=== PATIENT | female | born 1955 | race Caucasian/White ===

== ENCOUNTER 2016-04-01 21:26 | Emergency (ER) | payer OTHER ==
[2016-04-01] MEDS ORDERED: SILVER NITRATE APPLICATOR 1 EACH TOPICAL ONE ×4 (21:40→21:47)
--- NOTE | 2016-04-01 21:52 | PDOC ---
Epistaxis / Nasal FB - General Chief Complaint: Nasal/Mouth Problem /Injury Stated Complaint: BLOODY NOSE FOR 1 HOUR Date Seen by Provider: 04/01/16 Time Seen by Provider: 21:47 Source: POSITIVE: Patient, Spouse Exam Limitations: POSITIVE: No limitations Nurse's Notes Reviewed & Considered: Yes - History of Present Illness Initial Comments: Impression presents with epistaxis. Patient is a 1 hour history of bleeding from the left nare. She's had a another recent nosebleed after she injured the mucosa on the medial septum a few days ago. She told her oncologist that she had been having blood clots in her nose but nothing has been done. Ultimately undergoing treatment for stage IV ovarian cancer. She denies any fever chills sweats, nausea vomiting diarrhea, no chest pain shortness of breath, no cough, no headaches. Timing: REPORTS: Abrupt Severity: Moderate Lasting (minutes): 60 Context: REPORTS: None Modifying Factors: improves with: Nothing Similar Symptoms Previously: Yes Recent Care Received: REPORTS: Recently Seen Any Prior Injuries Related to Current Complaint?: No - Patient Allergies Allergies/Adverse Reactions: Allergies Allergy/AdvReac Type Severity Reaction Status Date / Time codeine Allergy Intermediate rash Verified 04/01/16 21:33 - Patient Home Medications Home Medications: Home Medications Multivitamin [Daily Vitamin] 1 tab PO DAILY tab 08/21/14 Fexofenadine HCl [Destiny Allergy] 180 mg PO DAILY tab 06/16/15 Past Medical History - heen HEENT History: Dentures/Partials Cardiovascular History: Hypertension Respiratory History: Denies History Additional Gastrointestinal History: 03/11/14 HAD COLECTOMY Genitourinary History: Denies History Endocrine History: Denies History Musculoskeletal History: Denies History Prosthesis or Implant: No Neurological History: Migraines Blood Disorders: Denies History Psychiatric History: Anixety Disorders History of Sexually Transmitted Diseases: No Female Reproductive History: Denies History Obstetrical History: Denies History In Past Year Been Physically Harmed or Verbally Threatened: No History of MDRO: No History of Other Communicable Diseases: No Tobacco Use: Never Smoker Alcohol Use: None Substance Use Type: None Previous Surgical History: Yes Type / Date of Surgery: APPY/ HYST WITH BILAT OOPHORECTOMY 03/11/14/ C SECTION / COLONOSCOPY/ RIGHT HEMICOLECTOMY WITH TUMOR DEBULKING FROM SIGMOID COLON/ TONSILLECTOMY Anesthesia Reactions: No Malignant Hyperthermia: No Significant Family History: No pertinent family hx ROS - Limitations ROS Limitations: No Limitations Constitution: REPORTS: Denies Symptoms Cardiovascular: REPORTS: Denies Cardiac Symptoms Respiratory: REPORTS: Denies Resp Symptoms Neurological: REPORTS: Denies Neuro Symptoms Gastrointestinal: REPORTS: Denies GI Symptoms Endocrine: REPORTS: Denies Symptoms Musculoskeletal: REPORTS: Denies MS Symptoms Genitourinary: REPORTS: Denies Symptoms Eyes: REPORTS: Denies Symptoms ENT: REPORTS: Nose Bleed Skin: REPORTS: Denies Skin Symptoms Lympathic: REPORTS: Denies Lympathic Symptoms Immunologic: POSITIVE: Denies Symptoms Psychiatric: POSITIVE: Denies Psych Symptoms Nose Complaint Exam - General Appearance General Appearance: POSITIVE: Alert, Cooperative, No Acute Distress, No Evidence of Trauma, Anxious - HEENT Head / Face: POSITIVE: Atraumatic, Normal Inspection Eyes: POSITIVE: Inspection Normal, PERRL, EOM's Intact, Eyelids Uninjured Ears: POSITIVE: Ears Normal Inspection Nose: POSITIVE: Clotted Nasal Blood, Epistaxis, Active Bleeding Oropharynx: POSITIVE: External Inspection Nml, Pharynx Inspect. Nml, Airway Intact, Voice Normal, Moist Mucous Membranes, No Oral Injury, Lips Normal, Gums Normal Dental: POSITIVE: No Dental Injury - Neurological / Psychological Neurological: POSITIVE: Affect Apporpriate, Oriented X3 - Neck Neck: POSITIVE: Normal Inspection - Respiratory Respiratory: POSITIVE: No Respiratory Distress, Breath Sounds Normal, Chest Non- Tender - Cardiovascular Cardiovascular: POSITIVE: Regular Rate and Rhythm, Heart Sounds Normal - Abdomen Abdomen: Soft: (All Quadrants), Normal Bowel Sounds: (All Quadrants), Denies Tenderness: (All Quadrants) - Skin Skin: POSITIVE: Normal Color, No Skin Rash Nose Complaint Progress - Results Reviewed by me Lab Results Reviewed: Yes Lab Results:: Laboratory Results 04/01/16 Range/Units 22:03 WBC 8.04 (4.8-10.8) 10^3/uL RBC 3.78 L (4.20-5.40) 10^6/uL Hgb 12.9 (12.0-16.0) g/dL Hct 36.6 L (37.0-47.0) % MCV 96.8 (81-99) FL MCH 34.1 H (27-31) PG MCHC 35.2 (33-37) g/dL RDW Std Deviation 48.2 (39-50) fL RDW Coeff of Daniel 14.2 (11.5-14.5) % Plt Count 213 (140-350) 10*3/uL MPV 7.9 (7.4-12.2) FL Immature Gran % (Auto) 0.1 (0-5) % Neut % (Auto) 46.5 L (50-80) % Lymph % (Auto) 39.4 (10-50) % [place] % (Auto) 6.8 (5-15) % Eos % (Auto) 6.5 (0-8) % Baso % (Auto) 0.7 (0-1) % Immature Gran # (Auto) 0.01 10*3/UL Neut # (Auto) 3.73 10*3/UL Lymph # (Auto) 3.17 10*3/uL [place] # (Auto) 0.55 (0.3-0.8) 10*3/UL Eos # (Auto) 0.52 10*3/UL Baso # (Auto) 0.06 10*3/UL WBC Morphology Comment Normal morphology (NORM) Plt Morphology Comment Normal morphology (NORM) RBC Morph Comment Normal morphology (NORM) PT 10.7 (9.7-11.4) secs INR 1.04 (0.00-5.90) N/A - Patient's Progress Pain Medication Addressed: POSITIVE: Not Applicable Re-Examine Time:: 22:17 Status: POSITIVE: Improved MDM / ED Course: Patient was evaluated, blood drawn and sent to lab for studies. After obtaining informed verbal consent. Bleeding on the medial septum left naris was identified as the source of bleed. Using silver nitrate this was cauterized. Patient was observed for approximately 30 minutes with no resumption of nosebleed. She is being discharged home with instructions to follow up with her primary care physician, nasal saline, no foreign objects in her nose, and no blowing her nose. - Consult Counseled: POSITIVE: Patient, Family, RE: Lab Results, RE: DX, RE: Need for F/U Patient Care Time - Estimated PCT Patient Care Time (In Minutes): 30 Vital Signs - VS Reviewed Vital Signs Reviewed: Yes Discharge Clinical Impression: Epistaxis Discharge Disposition: Discharged to Home Condition: Good Patient Instructions Given at Discharge: Nosebleed (ED)
[2016-04-01 22:05] LABS: BASOPHILS # (AUTO) 0.06 10*3/UL; BASOPHILS % (AUTO) 0.7 % (0-1); EOSINOPHILS % (AUTO) 6.5 % (0-8); HEMATOCRIT 36.6 % (37.0-47.0); HEMOGLOBIN 12.9 g/dL (12.0-16.0); IMM GRAN % (AUTO) 0.1 % (0-5); IMM GRAN# (AUTO) 0.01 10*3/UL; LYMPHOCYTES # (AUTO) 3.17 10*3/uL; LYMPHOCYTES % (AUTO) 39.4 % (10-50); MEAN CORPUSCULAR HEMOGLOBIN 34.1 PG (27-31); MEAN CORPUSCULAR HGB CONC 35.2 g/dL (33-37); MEAN PLATELET VOLUME 7.9 FL (7.4-12.2); MONOCYTES # (AUTO) 0.55 10*3/UL (0.3-0.8); MONOCYTES % (AUTO) 6.8 % (5-15); NEUTROPHILS # (AUTO) 3.73 10*3/UL; NEUTROPHILS % (AUTO) 46.5 % (50-80); RDW COEFFICIENT OF VARIATION 14.2 % (11.5-14.5); RED BLOOD COUNT 3.78 10^6/uL (4.20-5.40); WHITE BLOOD COUNT 8.04 10^3/uL (4.8-10.8)
[2016-04-01 22:06] LABS: PLATELET MORPHOLOGY COMMENT NORMAL MORPHOLOGY (NORM)
[2016-04-01 22:15] LABS: PROTHROMBIN TIME 10.7 secs (9.7-11.4)
[2016-04-02 00:14] VITALS: RESP 18; TEMP 96.8
== END 2016-04-01 22:25 | disposition home or self-care (01) ==
LOC: ER 21:26
DX: R04.0 Epistaxis (principal)
CPT/HCPCS: 30901; 36415; 85025; 85610; 99282

== ENCOUNTER → 2016-06-13 | Outpatient (CLI) | payer OTHER ==
--- NOTE | 2016-06-13 15:06 | DI ---
RIGHT SHOULDER, 06/13/2016 1:09 PM: Clinical History: Acute right shoulder pain. Previous Exam: None at this facility. 4 views are submitted. There is no acute soft tissue, osseous, or joint abnormality. There is osteopo rosis. The visualized portions of the right lung and apex are normal. The patient has an indwelling c atheter. Reading: Normal right shoulder exam. Osteoporosis.
== END ==
LOC: ORTHO 13:50
PROVIDERS: ATTEND Physician Assistant
DX: M25.511 Pain in right shoulder (principal); M75.41 Impingement syndrome of right shoulder
CPT/HCPCS: 73030

== ENCOUNTER 2016-08-10 09:17 | Emergency (ER) | payer OTHER ==
[2016-08-10] MEDS ORDERED: COCAINE HCL 4% - 4 ML TOPICAL SOLUTION TOPICAL ONE (09:53)
[2016-08-10 10:05] LABS: BASOPHILS # (AUTO) 0.03 10*3/UL; BASOPHILS % (AUTO) 0.5 % (0-1); EOSINOPHILS # (AUTO) 0.29 10*3/UL; EOSINOPHILS % (AUTO) 4.9 % (0-8); HEMATOCRIT 39.1 % (37.0-47.0); LYMPHOCYTES # (AUTO) 1.54 10*3/uL; MEAN CORPUSCULAR HEMOGLOBIN 33.8 PG (27-31); MEAN CORPUSCULAR HGB CONC 33.2 g/dL (33-37); MEAN CORPUSCULAR VOLUME 101.6 FL (81-99); MEAN PLATELET VOLUME 7.6 FL (7.4-12.2); MONOCYTES # (AUTO) 0.41 10*3/UL (0.3-0.8); NEUTROPHILS # (AUTO) 3.61 10*3/UL; NEUTROPHILS % (AUTO) 61.3 % (50-80); RED BLOOD COUNT 3.85 10^6/uL (4.20-5.40)
[2016-08-10 10:07] VITALS: RESP 18; TEMP 97.8
[2016-08-10 10:07] LABS: PLATELET MORPHOLOGY COMMENT NORMAL MORPHOLOGY (NORM); RBC MORPHOLOGY COMMENT NORMAL MORPHOLOGY (NORM); WBC MORPHOLOGY COMMENT NORMAL MORPHOLOGY (NORM)
[2016-08-10 10:15] LABS: BLOOD UREA NITROGEN 10 mg/dL (7-22); CALCIUM 9.2 mg/dL (8.7-10.7); EST GLOMERULAR FILTRATION > 60 (>60 ml/min/1.73m(2))
[2016-08-10] MEDS ORDERED: SILVER NITRATE APPLICATOR 1 EACH TOPICAL ONE ×2 (10:30→10:47)
[2016-08-10] MEDS ORDERED: TRANEXAMIC ACID 1,000 MG / 10 ML VIAL IRRIG ONE (11:00)
--- NOTE | 2016-08-11 03:40 | PDOC ---
Epistaxis / Nasal FB - General Chief Complaint: Nasal/Mouth Problem /Injury Stated Complaint: nose bleed Date Seen by Provider: 08/11/16 Time Seen by Provider: 09:45 Source: POSITIVE: Patient Exam Limitations: POSITIVE: No limitations Nurse's Notes Reviewed & Considered: Yes - History of Present Illness Initial Comments: The patient is a 61-year-old female who presents to the emergency department with nosebleed. She states that she has had problems with intermittent nosebleeds which have been worsened since starting on chemotherapy recently. She states for the past week or so she has had intermittent minor nosebleeds. Last night she had a fairly significant nosebleed that took a period of time to stop. Again this morning she coughed and had subsequent bleeding primarily from the left side of her nose which was not stopping so she decided to come here to the emergency room. She is not currently taking any blood thinner medications. She states at one point her platelets were low secondary to the chemotherapy she was receiving however recently her blood counts have been okay. She last had her blood work done about a week ago. She denies any other associated symptoms. - Patient Allergies Allergies/Adverse Reactions: Allergies Allergy/AdvReac Type Severity Reaction Status Date / Time codeine Allergy Intermediate rash Verified 08/10/16 09:33 - Patient Home Medications Home Medications: Home Medications Multivitamin [Daily Vitamin] 1 tab PO DAILY tab 08/21/14 Amlodipine Besylate 5 mg PO DAILY 04/01/16 Meloxicam 1 tab PO QHS #30 tab 07/04/16 Cephalexin [Keflex] 500 mg PO Q8H #15 cap 08/10/16 Lisinopril 40 mg PO DAILY 08/10/16 Past Medical History - heen HEENT History: Dentures/Partials Cardiovascular History: Hypertension Respiratory History: Denies History Additional Gastrointestinal History: 03/11/14 HAD COLECTOMY Genitourinary History: Denies History Endocrine History: Denies History Musculoskeletal History: Joint Pain Prosthesis or Implant: No Neurological History: Migraines Blood Disorders: Denies History Psychiatric History: Anxiety Disorders History of Sexually Transmitted Diseases: No Female Reproductive History: Hysterectomy Obstetrical History: Delivery In Past Year Been Physically Harmed or Verbally Threatened: No History of MDRO: No History of Other Communicable Diseases: No Tobacco Use: Current Every Day Smoker Alcohol Use: None Substance Use Type: None Previous Surgical History: Yes Type / Date of Surgery: APPY/ HYST WITH BILAT OOPHORECTOMY 03/11/14/ C SECTION / COLONOSCOPY/ RIGHT HEMICOLECTOMY WITH TUMOR DEBULKING FROM SIGMOID COLON/ TONSILLECTOMY Anesthesia Reactions: No Malignant Hyperthermia: No Significant Family History: No pertinent family hx Past Medical History Reviewed: Reviewed - No Changes ROS - Limitations ROS Limitations: No Limitations Constitution: DENIES: Chills, Fever Cardiovascular: REPORTS: Denies Cardiac Symptoms Respiratory: REPORTS: Denies Resp Symptoms Neurological: REPORTS: Denies Neuro Symptoms Gastrointestinal: REPORTS: Denies GI Symptoms Nose Complaint Exam - General Appearance General Appearance: POSITIVE: Alert, Cooperative, No Acute Distress - HEENT Head / Face: POSITIVE: Atraumatic, No Facial Swelling Eyes: POSITIVE: Inspection Normal Ears: POSITIVE: Ears Normal Inspection Nose: POSITIVE: Other (she does have some clot formation in the left nares with some mild active oozing of blood, dried blood in the right nares) Oropharynx: POSITIVE: Other (some evidence of blood draining down the back of her throat as well) - Neurological / Psychological Neurological: 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 After topical cocaine was applied the clot was cleared and the nasal cavity was observed using a nasal speculum and headlamp. She has continued fairly active bleeding from the septum on the left side. This did not appear to be amendable to cautery with silver nitrite. Decision was made to try a rapid Rhino. A 5.5 cm rapid Rhino was attempted to be placed in the left nares however her nasal passageway was too small to accommodate this and would not pass without significant pain. Subsequently a nasal tampon was placed. Initially she continued to have some fairly significant active oozing. I was getting ready to replace this with a TXA soaked nasal tampon when the bleeding seemed to finally stop. The nasal tampon that was in place was infused with the TXA and she was monitored. The bleeding appeared to have resolved. Her blood work revealed normal platelets, normal hemoglobin and normal coags. She was started on Keflex 3 times a day while the packing is in place. She was advised to leave the packing in place and return here to the emergency room over the weekend in 3 days for packing removal. She has an appointment with an ENT physician in a couple of weeks which she was advised to keep. She will return if any worsening bleeding, increased pain, fever, any worsening or change in symptoms. Nose Complaint Progress - Results Reviewed by me Lab Results:: Laboratory Results 08/10/16 08/10/16 Range/Units 09:53 10:00 WBC 5.89 (4.8-10.8) 10^3/uL RBC 3.85 L (4.20-5.40) 10^6/uL Hgb 13.0 (12.0-16.0) g/dL Hct 39.1 (37.0-47.0) % MCV 101.6 H (81-99) FL MCH 33.8 H (27-31) PG MCHC 33.2 (33-37) g/dL RDW Std Deviation 54.2 H (39-50) fL RDW Coeff of Daniel 14.8 H (11.5-14.5) % Plt Count 221 (140-350) 10*3/uL MPV 7.6 (7.4-12.2) FL Immature Gran % (Auto) 0.2 (0-5) % Neut % (Auto) 61.3 (50-80) % Lymph % (Auto) 26.1 (10-50) % [place] % (Auto) 7.0 (5-15) % Eos % (Auto) 4.9 (0-8) % Baso % (Auto) 0.5 (0-1) % Immature Gran # (Auto) 0.01 10*3/UL Neut # (Auto) 3.61 10*3/UL Lymph # (Auto) 1.54 10*3/uL [place] # (Auto) 0.41 (0.3-0.8) 10*3/UL Eos # (Auto) 0.29 10*3/UL Baso # (Auto) 0.03 10*3/UL WBC Morphology Comment Normal morphology (NORM) Plt Morphology Comment Normal morphology (NORM) RBC Morph Comment Normal morphology (NORM) PT 10.1 (9.7-11.4) secs INR 0.98 (0.00-5.90) N/A Sodium 136 (135-145) meq/L Potassium 4.2 (3.8-5.2) meq/L Chloride 101 (98-112) meq/L Carbon Dioxide 24 (23-33) meq/L Anion Gap 11 (5-20) BUN 10 (7-22) mg/dL Creatinine 0.8 (0.50-1.20) mg/dL Estimated GFR > 60 (>60 ml/min/1.73m(2)) BUN/Creatinine Ratio 12.50 (6-20) Glucose 102 (78-110) mg/dL Calculated Osmolality 280.0 (267-292) mOsm/kg Calcium 9.2 (8.7-10.7) mg/dL - Patient's Progress MDM / ED Course: Her bleeding was eventually controlled as per procedure note. Her blood work revealed normal platelets, normal hemoglobin and normal coags. She was started on Keflex 3 times a day while the packing is in place. She was advised to leave the packing in place and return here to the emergency room over the weekend in 3 days for packing removal. She has an appointment with an ENT physician in a couple of weeks which she was advised to keep. She will return if any worsening bleeding, increased pain, fever, any worsening or change in symptoms. Patient Care Time - Estimated PCT Patient Care Time (In Minutes): 55 Vital Signs - VS Reviewed Vital Signs Reviewed: Yes Discharge Clinical Impression: Epistaxis Discharge Disposition: Discharged to Home Condition: Stable Prescriptions / Orders: Cephalexin [Keflex] 500 mg PO Q8H #15 cap Patient Instructions Given at Discharge: Nosebleed (ED) Additional Instructions: Keep the packing in place. You have been started on Keflex 500 mg 3 times a day for 5 days while the packing is in place. Avoid blowing her nose. Return to the emergency room if increased bleeding, increased pain, fever, any worsening or change in symptoms. He will need to return to the emergency department this weekend on Sunday for packing removal. Recommend follow-up with ENT as previously scheduled. Follow Up With: NONE,NONE [Primary Care Provider] -
== END 2016-08-10 12:37 | disposition home or self-care (01) ==
LOC: ER 09:17
DX: R04.0 Epistaxis (principal)
CPT/HCPCS: 30901; 80048; 85025; 85610; 99282

== ENCOUNTER 2016-08-13 13:35 | Emergency (ER) | payer OTHER ==
[2016-08-13 14:08] VITALS: RESP 16; TEMP 97.9
--- NOTE | 2016-08-13 19:26 | PDOC ---
Epistaxis / Nasal FB - General Chief Complaint: Nasal/Mouth Problem /Injury Stated Complaint: Nose Bleed Date Seen by Provider: 08/13/16 Time Seen by Provider: 14:10 Source: POSITIVE: Patient, Old records Exam Limitations: POSITIVE: No limitations Nurse's Notes Reviewed & Considered: Yes - History of Present Illness Initial Comments: The patient is a 61-year-old female. 3 days ago she was seen in the emergency room for left sided epistaxes. Emergency room physician on duty at that time placed a large Merocel packing in the left side of the nose. She states she was advised to return to the emergency room today for packing removal and reevaluation. She has been placed on an antibiotic prophylactically when the packing was placed. Patient states she takes aspirin as necessary for headache. History of hypertension for which she takes lisinopril. Patient also has a history of ovarian cancer. Is on no anticoagulants Timing: REPORTS: Other (patient denies any recurrence of bleeding since packing was placed) Severity: Moderate Quality: DENIES: Aching, Burning, Cramping, Dullness, Fullness, "Pain", Sharpness, Stabbing, Throbbing, Tenderness, Itching, Pressure, Other Context: DENIES: None, Sitting, Standing, Activity, Emotional stress, Coughing, Out of Country Travel, Bad Food, Recent Trauma, Recent Surgery, Sleep, Rest, Lifting, Turning, Bending, Fall, Near Fall Modifying Factors: worse with: Nothing, Analgesics, Antacids, Breathing, Coughing, Defecating, Vomiting, Eating, Exercise, Lying down, Urinating, Palpation, Movement, Rest, Upright Position, Walking, Remaining Still, Other Associated Symptoms: Other (no associated symptoms; no dizziness or lightheadedness; no recurrence of epistaxis) Similar Symptoms Previously: Yes Recent Care Received: REPORTS: Recently Seen, Treated by MD (see above) Any Prior Injuries Related to Current Complaint?: No - Patient Allergies Allergies/Adverse Reactions: Allergies Allergy/AdvReac Type Severity Reaction Status Date / Time codeine Allergy Intermediate rash Verified 08/13/16 14:15 - Patient Home Medications Home Medications: Home Medications Multivitamin [Daily Vitamin] 1 tab PO DAILY tab 08/21/14 Amlodipine Besylate 5 mg PO DAILY 04/01/16 Meloxicam 1 tab PO QHS #30 tab 07/04/16 Cephalexin [Keflex] 500 mg PO Q8H #15 cap 08/10/16 Lisinopril 40 mg PO DAILY 08/10/16 Past Medical History - heen HEENT History: Dentures/Partials Cardiovascular History: Hypertension Respiratory History: Denies History Additional Gastrointestinal History: 03/11/14 HAD COLECTOMY Genitourinary History: Denies History Endocrine History: Denies History Musculoskeletal History: Joint Pain Prosthesis or Implant: No Neurological History: Migraines Blood Disorders: Denies History Psychiatric History: Anxiety Disorders History of Sexually Transmitted Diseases: No Female Reproductive History: Hysterectomy, Other (please comment) Additional Female Reproductive History: OVARIAN CANCER LMP: 1999 Obstetrical History: Denies History In Past Year Been Physically Harmed or Verbally Threatened: No History of MDRO: No History of Other Communicable Diseases: No Tobacco Use: Light Tobacco Smoker Alcohol Use: None Substance Use Type: None Previous Surgical History: Yes Type / Date of Surgery: APPY/ HYST WITH BILAT OOPHORECTOMY 03/11/14/ C SECTION / COLONOSCOPY/ RIGHT HEMICOLECTOMY WITH TUMOR DEBULKING FROM SIGMOID COLON/ TONSILLECTOMY Anesthesia Reactions: No Malignant Hyperthermia: No Significant Family History: No pertinent family hx Past Medical History Reviewed: Reviewed - No Changes ROS - Limitations ROS Limitations: No Limitations Constitution: REPORTS: Denies Symptoms Cardiovascular: REPORTS: Denies Cardiac Symptoms Respiratory: REPORTS: Denies Resp Symptoms Neurological: REPORTS: Denies Neuro Symptoms Gastrointestinal: REPORTS: Denies GI Symptoms Endocrine: REPORTS: Denies Symptoms Musculoskeletal: REPORTS: Denies MS Symptoms Genitourinary: REPORTS: Denies Symptoms Eyes: REPORTS: Denies Symptoms ENT: REPORTS: Denies Symptoms, Other (As above. No recurrence of epistaxis or any other symptoms) Skin: REPORTS: Denies Skin Symptoms Lympathic: REPORTS: Denies Lympathic Symptoms Immunologic: POSITIVE: Denies Symptoms Psychiatric: POSITIVE: Denies Psych Symptoms Nose Complaint Exam - General Appearance General Appearance: POSITIVE: Alert, Cooperative, No Acute Distress, No Evidence of Trauma - HEENT Head / Face: POSITIVE: Atraumatic, Normal Inspection, No Facial Swelling Eyes: POSITIVE: Inspection Normal, PERRL, EOM's Intact, Eyelids Uninjured, Conjunctivae Uninjured, No Nystagmus, No Globe Trauma, Sclera Normal, Normal Corneal Inspection Ears: POSITIVE: Ears Normal Inspection, TM Normal Inspection, Auricle Normal, External Canal Normal Nose: POSITIVE: Inspection Normal, No Apparent Trauma, Nares Normal, No CSF Leak , Other (packing removed from left nostril; site of recent cauterization identified. No evidence of recurring epistaxis) Oropharynx: POSITIVE: External Inspection Nml, Pharynx Inspect. 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, Motor Normal, Sensation Normal, 5, 6 - Neck Neck: POSITIVE: Normal Inspection, Thyroid Normal - Respiratory Respiratory: POSITIVE: No Respiratory Distress, Breath Sounds Normal, Chest Non- Tender - Cardiovascular Cardiovascular: POSITIVE: Regular Rate and Rhythm, Heart Sounds Normal, Equal Pulses, Strong Pulses Peripheral Pulses: Radial (R): 2+, Radial (L): 2+ - Skin Skin: POSITIVE: Normal Color, No Skin Rash Nose Complaint Progress - Patient's Progress Pain Medication Addressed: POSITIVE: Not Applicable School/Work Release Addressed: POSITIVE: Not Applicable Re-Examine Time:: 14:35 Re-Examine Comment: Merisel packing removed from left nostril. No evidence of recurring bleeding. Status: POSITIVE: Improved, Re-Examined - Consult Counseled: POSITIVE: Patient, RE: DX, RE: Need for F/U Patient Care Time - Estimated PCT Patient Care Time (In Minutes): 15 Vital Signs - Recent Vital Signs Vital Signs: Vital Signs (Last 8 hours) Temp Pulse Resp BP 08/13/16 13:54 97.9 F 84 16 147/98 - VS Reviewed Vital Signs Reviewed: Yes Discharge Clinical Impression: Epistaxis Discharge Disposition: Discharged to Home Condition: Stable Patient Instructions Given at Discharge: Nosebleed (ED) Additional Instructions: Avoid aspirin, Aleve, Advil and similar type of anti-inflammatory pain medications. Lubricate nostrils well with bacitracin or Neosporin daily. Follow-up with your primary care provider. Follow-up with your injured nose and throat physician as arranged. Return here anytime if condition worsens in any way. Follow Up With: LESA GRUBBS [Primary Care Provider] - (Instructions as above. Follow-up with your primary care provider and ENT specialist. Return here as necessary.)
== END 2016-08-13 14:45 | disposition home or self-care (01) ==
LOC: ER 13:35
DX: R04.0 Epistaxis (principal); I10 Essential (primary) hypertension; Z85.43 Personal history of malignant neoplasm of ovary
CPT/HCPCS: 30901; 99283

== ENCOUNTER → 2016-08-25 | Outpatient (CLI) | payer OTHER ==
--- NOTE | 2016-08-25 15:00 | DI ---
VENOUS DOPPLER ULTRASOUND OF THE RIGHT LOWER EXTREMITY, 08/25/2016 2:03 PM: Clinical History: Right lower extremity pain Previous Exam: None. Technique: 2D real-time imaging is supplemented with color Doppler ultrasound. Compression and augmen tation maneuvers were performed. The long saphenous vein is normal. Reading: No evidence of deep venous thrombosis.
== END ==
LOC: US 13:57
PROVIDERS: ATTEND Internal Medicine
DX: M79.661 Pain in right lower leg (principal)
CPT/HCPCS: 93971

== ENCOUNTER 2018-01-30 12:51 | Observation (INO) ==
[2018-01-30] MEDS ORDERED: Sodium Chloride 0.9% 1,000 ML PRIMARY IV ONE (13:08)
[2018-01-30 13:31] LABS: BASOPHILS # (AUTO) 0.01 10*3/UL; BASOPHILS % (AUTO) 0.2 % (0-1); EOSINOPHILS # (AUTO) 0 10*3/UL; EOSINOPHILS % (AUTO) 0 % (0-8); LYMPHOCYTES # (AUTO) 0.82 10*3/uL; MEAN CORPUSCULAR HEMOGLOBIN 31.9 PG (27-31); MEAN CORPUSCULAR HGB CONC 31.9 g/dL (33-37); MEAN PLATELET VOLUME 9.1 FL (7.4-12.2); MONOCYTES # (AUTO) 0.58 10*3/UL (0.3-0.8); MONOCYTES % (AUTO) 11.2 % (5-15); NEUTROPHILS # (AUTO) 3.74 10*3/UL; NEUTROPHILS % (AUTO) 72.5 % (50-80); RED BLOOD COUNT 1.88 10^6/uL (4.20-5.40)
[2018-01-30 13:44] LABS: Hematocrit [HCT] 18.8 % (37.0-47.0)
[2018-01-30 14:05] LABS: PLATELET MORPHOLOGY COMMENT SEE COMMENTS (NORM); RBC MORPHOLOGY COMMENT NORMAL MORPHOLOGY (NORM); WBC MORPHOLOGY COMMENT NORMAL MORPHOLOGY (NORM)
[2018-01-30 14:06] LABS: BLOOD UREA NITROGEN 16 mg/dL (7-22); BUN/CREATININE RATIO 22.85 (6-20); SERUM ALBUMIN 3.4 g/dL (3.5-4.8)
--- NOTE | 2018-01-30 14:37 | PDOC ---
HPI - History of Present Illness History of Present Illness: This very nice 62-year-old female with history of stage III metastatic ovarian cancer. Undergoing chemotherapy and followed by Dr. flores oncology in [place]. Patient had some blood work done ordered by the oncology office and now was told to come to the ER in [place] because her hemoglobin was 6 I was called from the ER by Dr. Kendrick because patient basically needs blood transfusion and to be monitored. She denies any chest pain nausea or vomiting she is having a hard time eating because of the metastatic ovarian cancer that's person on her stomach from her liver She had a recent CAT scan yesterday and she knows about her metastatic disease she is scheduled for chemotherapy again next week she did have a mild nosebleed but no bright red blood per rectum or black stools - Past Medical History Medical History: Hypertension, migraines Surgical History: APPY/ HYST WITH BILAT OOPHORECTOMY 03/11/14/ C SECTION/ COLONOSCOPY/ RIGHT HEMICOLECTOMY WITH TUMOR DEBULKING FROM SIGMOID COLON/ TONSILLECTOMY Tobacco Use: Current Every Day Smoker Do you dip or chew tobacco: No In the Past 12 Months, Have Used or Abuse Any of the Following Substance: None Medication / Allergies Home Medications: Home Medications 3 Medication Instructions Recorded Confirmed Type Multivitamin [Daily Vitamin] 1 tab PO DAILY tab 08/21/14 01/08/18 History Allergies/Adverse Reactions: Allergies 3 Allergy/AdvReac Type Severity Reaction Status Date / Time codeine Allergy Intermediate rash Verified 01/30/18 12:53 Review of Systems - Review of Systems All Systems: Reviewed & No Additional Complaints Except as Stated - Respiratory Respiratory: DENIES: Negative System Review, Cough, Sputum, Dyspnea At Rest, Dyspnea with Exertion, Pleuritic Pain, Hemoptysis, Wheezing, Other, See HPI - Cardiovascular Cardiovascular: DENIES: Negative System Review, Chest Pain, Edema, Syncope, Palpitations, Orthopnea, Paroxysmal Nocturnal Dyspnea, Other, See HPI - Gastrointestinal Gastrointestinal / Abdominal: REPORTS: Nausea, Abdominal Pain Exam - Vitals Vital Signs: Vital Signs Temperature 97.6 F Temperature Source Temporal Artery Scan Pulse Rate [Pulse Oximeter 110 Bilateral Radial] Pulse Rate [Bilateral Radial] 110 Respiratory Rate 20 Blood Pressure [Left Arm] 115/75 Pulse Ox 98 Oxygen Delivery Method Room Air Height 5 ft 3 in Weight 105 lb - General General Appearance: Mild Distress - Head Head Exam: Normal Inspection, Normocephalic, Atraumatic - Eye Eye Exam: POSITIVE: Normal Appearance, PERRL, EOMI, No Scleral Icterus - Neck Neck Exam: Normal Inspection, Full ROM, No Tenderness, No Lymphadenopathy, No Thyromegaly, JVP is not Raised - Respiratory Respiratory Exam: POSITIVE: Clear to Auscultation - Bilaterally, Breathing Non Labored, Normal To Percussion, Normal to Percussion and Palpation - Cardiovascular Cardiovascular Exam: POSITIVE: RRR, No Murmur, No Clicks, No Gallops, No Rubs, PMI Non-Displaced - GI/Abdominal Additional GI/Abdominal Exam Details: Left lower quadrant which most likely from the cancer - Extremities Extremities Exam: POSITIVE: No Clubbing Present, No Edema Present, No Cyanosis Present - Neurological Neurological Exam: POSITIVE: Alert, Oriented x 3, No Facial Droop, Speech Intact / Clear Results - Labs CBC and BMP: 01/30/18 13:08 01/30/18 13:25 Assessment and Plan - Patient Problems (1) Anemia Current Visit: Yes Status: Acute Comment: Anemia no very low red blood percent per rectum or black stools patient did have a mild episode of epistaxis at home now resolved I did talk to Dr. Lindsay hematology oncology I told her that her hemoglobin was 6 and her platelets were 28 she recommended 2 units of packed red blood cells and 1 bag of platelets. These were already ordered in the ER patient will be admitted for observation and for transfusion Code(s): D64.9 - Anemia, unspecified (2) Epistaxis Current Visit: No Status: Acute Comment: Resolved at present time we do not have ENT available for evaluation Code(s): R04.0 - Epistaxis (3) Ovarian cancer Current Visit: No Status: Acute Comment: Managed by [facility] in [place] Code(s): C56.9 - Malignant neoplasm of unspecified ovary
[2018-01-30] MEDS ORDERED: ACETAMINOPHEN 325 MG TABLET PO PRN (15:21)
[2018-01-30] MEDS ORDERED: fentaNYL Inj 100 MCG/2 ML VIAL IVP PRN (15:21)
[2018-01-30] MEDS ORDERED: ONDANSETRON 4 MG/2 ML VIAL IVP PRN (15:21)
[2018-01-30] MEDS ORDERED: LIDOCAINE W/ SODIUM BICARB 0.5 ML SYR SUBD PRN (15:21)
[2018-01-30] MEDS ORDERED: CALCIUM CARBONATE 500 MG (TUMS) CHEWABLE TABLET PO PRN (15:21)
[2018-01-30] MEDS ORDERED: DOCUSATE 100 MG CAPSULE PO PRN (15:21)
[2018-01-30] MEDS ORDERED: diphenhydrAMINE 50 MG/1 ML VIAL IVP ONE (22:41)
[2018-01-31 04:31] LABS: BASOPHILS # (AUTO) 0.01 10*3/UL; BASOPHILS % (AUTO) 0.2 % (0-1); EOSINOPHILS # (AUTO) 0.01 10*3/UL; EOSINOPHILS % (AUTO) 0.2 % (0-8); Hematocrit [HCT] 25.9 % (37.0-47.0); Hemoglobin [HGB] 8.4 g/dL (12.0-16.0); LYMPHOCYTES # (AUTO) 0.93 10*3/uL; MEAN CORPUSCULAR HEMOGLOBIN 31.6 PG (27-31); MEAN CORPUSCULAR HGB CONC 32.4 g/dL (33-37); MEAN CORPUSCULAR VOLUME 97.4 FL (81-99); MEAN PLATELET VOLUME 10.3 FL (7.4-12.2); MONOCYTES # (AUTO) 0.75 10*3/UL (0.3-0.8); MONOCYTES % (AUTO) 14.2 % (5-15); NEUTROPHILS # (AUTO) 3.57 10*3/UL; NEUTROPHILS % (AUTO) 67.6 % (50-80); RED BLOOD COUNT 2.66 10^6/uL (4.20-5.40)
--- NOTE | 2018-01-31 05:07 | PDOC ---
General Adult HPI - General Chief Complaint: General Medical Stated Complaint: NEEDS TRANSFUSION Date Seen by Provider: 01/30/18 Time Seen by Provider: 13:20 Source: POSITIVE: Patient, Spouse Exam Limitations: POSITIVE: No limitations Nurse's Notes Reviewed & Considered: Yes - History of Present Illness Initial Comment: The patient is a 62-year-old female brought to the emergency room by her . Patient has a history of metastatic stage III ovarian cancer. This condition is being treated by Dr. Dias, oncologist in [place]. Her oncologist did a CBC yesterday and the patient was found to be anemic with cytopenia. The oncologist contacted the patient and told patient to come to the emergency room for transfusion. Patient denies any head chest or abdominal pain no fevers or chills. She has a med upper abdominal mass which is thought to be a metastatic lesion to the left lobe of liver. No vomiting or diarrhea. No syncope or near- syncope. No sensory or motor symptoms. Have you received a tetanus shot in the past 10 years?: No Body Location Affected: REPORTS: Other (As above) Timing: REPORTS: Gradual Duration: Unknown Severity: Severe (Prominent anemia) Quality: REPORTS: Other (Patient denies any pain anywhere) Context: REPORTS: Other (As above) Modifying Factors: improves with: Nothing Similar Symptoms Previously: Yes Recent Care Received: REPORTS: Recently Seen, Treated by MD Any Prior Injuries Related to Current Complaint?: No - Patient Home Medications Home Medications: Home Medications Multivitamin [Daily Vitamin] 1 tab PO DAILY tab 08/21/14 Apixaban [Eliquis] 2.5 mg PO BID 01/30/18 Furosemide 20 mg PO DAILY 01/30/18 Ondansetron [Ondansetron Odt] 1 tab PO Q8H PRN 01/30/18 Oxymetazoline Nasal Spr 0.05% [Afrin Nasal Zearing 0.05%] 1 spray HALINA DAILY PRN 01/30/18 Potassium Chloride 20 meq PO BID 01/30/18 Sodium Chloride Tab [Thermotabs] 1 tab PO TID 01/30/18 Tramadol HCl 50 mg PO Q8H PRN 01/30/18 - Patient Allergies Allergies/Adverse Reactions: Allergies 3 Allergy/AdvReac Type Severity Reaction Status Date / Time codeine Allergy Intermediate rash Verified 01/30/18 19:09 Past Medical History - heen HEENT History: Dentures/Partials Cardiovascular History: Denies History Respiratory History: Denies History Gastrointestinal History: Denies History, Other (please comment) Additional Gastrointestinal History: 03/11/14 HAD COLECTOMY Genitourinary History: Denies History Endocrine History: Denies History Musculoskeletal History: Joint Pain Prosthesis or Implant: No Neurological History: Other (please comment) Additional Neurological History: Neuropathy in hands and feet Blood Disorders: Anemia, Clotting Disorders, Previous Bld Transfusions Psychiatric History: Denies History History of Sexually Transmitted Diseases: No Female Reproductive History: Other (please comment) Additional Female Reproductive History: Stage 3 ovarian cancer 2013 Obstetrical History: Denies History Cancer History: Ovarian In Past Year Been Physically Harmed or Verbally Threatened: No History of MDRO: No History of Other Communicable Diseases: No Tobacco Use: Light Tobacco Smoker Alcohol Use: None In the Past 12 Months, Have Used or Abuse Any Substance: None Previous Surgical History: Yes Type / Date of Surgery: APPY/ HYST WITH BILAT OOPHORECTOMY 03/11/14/ C SECTION / COLONOSCOPY/ RIGHT HEMICOLECTOMY WITH TUMOR DEBULKING FROM SIGMOID COLON/ TONSILLECTOMY Anesthesia Reactions: No Malignant Hyperthermia: No Significant Family History: Cancer Past Medical History Reviewed: Reviewed - No Changes ROS - Limitations ROS Limitations: No Limitations Constitution: REPORTS: Denies Symptoms Cardiovascular: REPORTS: Denies Cardiac Symptoms Respiratory: REPORTS: Denies Resp Symptoms Neurological: REPORTS: Denies Neuro Symptoms Gastrointestinal: REPORTS: Denies GI Symptoms Endocrine: REPORTS: Denies Symptoms Musculoskeletal: REPORTS: Denies MS Symptoms Genitourinary: REPORTS: Denies Symptoms Eyes: REPORTS: Denies Symptoms ENT: REPORTS: Denies Symptoms Skin: REPORTS: Denies Skin Symptoms Lympathic: REPORTS: Denies Lympathic Symptoms Immunologic: POSITIVE: Denies Symptoms Psychiatric: POSITIVE: Denies Psych Symptoms General Adult Exam - General Appearance General Appearance: POSITIVE: Alert, Cooperative, No Acute Distress, No Evidence of Trauma - HEENT HEENT: POSITIVE: Head Inspection Nml, Eyes Inspection Nml, Ears Inspection Nml, Nose Inspection Nml, Oral/Dental Inspect. Nml, Pharynx Inspect. Nml, PERRL, EOMI - Pupils Pupil Size: 3 mm: Bilateral - Neck Neck: POSITIVE: Normal Inspection, Thyroid Normal - Respiratory Respiratory: POSITIVE: No Respiratory Distress, Breath Sounds Normal, Chest Non- Tender - Cardiovascular Cardiovascular: POSITIVE: Regular Rate & Rhythm, No Murmur, No Gallop, PMI Normal Peripheral Pulses: Radial (R): 2+, Radial (L): 2+ - Abdomen Abdomen: Soft: (All Quadrants), Normal Bowel Sounds: (All Quadrants), Denies Tenderness: (All Quadrants), No Splenomegaly: (All Quadrants), No Hepatomegaly: (All Quadrants), No Guarding: (All Quadrants), No Rebound: (All Quadrants), No Palpable Pulse: (RLQ), (LLQ) (hepatomegally), No Palpabale Mass: (All Quadrants) , No Distention: (All Quadrants), No Rigidity: (All Quadrants) - Back Back: POSITIVE: Normal Inspection - Skin Skin: POSITIVE: Other (Pale) - Extremities Extremity: Non-Tender: (All Extremities), Normal ROM: (All Extremities), Normal Inspection: (All Extremities) - Neurological / Psychological Neurological: POSITIVE: Affect 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, 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, 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, Motor Normal, Sensation Normal Images - Complete Complete: 1 - Hepatomegaly 2 - Port General Adult Progress - Results Reviewed by me Lab Results:: Laboratory Results 3 01/30/18 01/30/18 01/30/18 13:08 13:25 13:25 WBC 5.16 RBC 1.88 L Hgb 6.0 L* Hct 18.8 L* MCV 100.0 H MCH 31.9 H MCHC 31.9 L RDW Std Deviation 53.6 H RDW Coeff of Daniel 15.8 H Plt Count 28 L* MPV 9.1 Immature Gran % (Auto) 0.2 Neut % (Auto) 72.5 Lymph % (Auto) 15.9 Crawford % (Auto) 11.2 Eos % (Auto) 0 Baso % (Auto) 0.2 Immature Gran # (Auto) 0.01 Neut # (Auto) 3.74 Lymph # (Auto) 0.82 Crawford # (Auto) 0.58 Eos # (Auto) 0 Baso # (Auto) 0.01 WBC Morphology Comment Normal morphology Plt Morphology Comment See comments RBC Morph Comment Normal morphology Sodium 129 L Potassium 4.0 Chloride 92 L Carbon Dioxide 29 Anion Gap 8 BUN 16 Creatinine 0.7 Estimated GFR > 60 BUN/Creatinine Ratio 22.85 H Glucose 98 Calculated Osmolality 268.0 Calcium 8.3 L Total Bilirubin 0.5 AST 66 H ALT 36 Alkaline Phosphatase 186 H Total Protein 6.5 Albumin 3.4 L Globulin 3.1 Albumin/Globulin Ratio 1.00 L Blood Type A POSITIVE Antibody Screen Negative Crossmatch See Detail CBC and BMP: 01/30/18 13:08 01/30/18 13:25 - Patient's Progress Pain Medication Addressed: POSITIVE: Not Applicable School/Work Release Addressed: POSITIVE: Not Applicable Re-Examine Time: 14:35 Re-Examine Comment: Hemoglobin 6, hematocrit 18.8, platelet 28,000. CMP normal except for sodium 129. Patient type and cross for 2 units of packed red blood cells. Case discussed with Dr. Wright, hospitalist, who has admitted the patient for transfusion and further evaluation and treatment. Status: POSITIVE: Unchanged Antibiotics Given: No - Consult Consult (If Yes, Name of Consulting MD & Time Called): Yes ( F , hospitalist [id number],) Consulting MD will see pt:: POSITIVE: In ED, [facility] Admit Counseled: POSITIVE: Patient, Family, RE: Lab Results, RE: DX, RE: Need for F/U Patient Care Time - Estimated PCT Patient Care Time (In Minutes): 40 Vital Signs - VS Reviewed Vital Signs Reviewed: Yes Discharge Clinical Impression: Anemia, Ovarian cancer Discharge Disposition: Admit to Inpatient Condition: Fair Date Decision to Admit to Inpatient: 02/06/18 Time Decision to Admit to Inpatient: 14:30
[2018-01-31 05:28] LABS: PLATELET MORPHOLOGY COMMENT NORMAL MORPHOLOGY (NORM); RBC MORPHOLOGY COMMENT SEE COMMENTS (NORM); WBC MORPHOLOGY COMMENT NORMAL MORPHOLOGY (NORM)
[2018-01-31] MEDS: Lactated Ringers 1,000 ML PRIMARY IV SCH ×2 (06:36→09:13)
[2018-01-31 09:29] VITALS: RESP 20
--- NOTE | 2018-01-31 09:41 | PDOC(PROG) ---
Date of Service: 01/31/18 Time of Service: 09:45 Interval History: Subjective She says she just woke up she came in because of nosebleed and she felt drained had blood tests which showed low count both anemia and decreased platelets and she was admitted. She said she had blood transfusion back in December. She's been on chemotherapy since she was diagnosed with in 2013. However there was a recent change to 2 kinds few weeks ago she's not sure about the names. She is due for another chemotherapy next week. It sounded that she would get her chemotherapy every other week. She's been seen by Dr. Cheney Objective : Data - Labs CBC and BMP: 01/31/18 03:49 01/30/18 13:25 Objective : Exam - General General Appearance: No Acute Distress, Cooperative - Head Head Exam: Normal Inspection - Eye Eye Exam: Normal Appearance - ENT ENT Exam: Normal Exam - Neck Neck Exam: Normal Inspection - Respiratory Respiratory Exam: Clear to Auscultation - Bilaterally - Cardiovascular Cardiovascular Exam: RRR - GI/Abdominal GI/Abdominal Exam: Normal Bowel Sounds, Non Tender, Soft Additional GI/Abdominal Exam Details: Big mass felt in the mid abdomen. Slightly tender. - Rectal Rectal Exam: Deferred - External Exam: Deferred - Extremities Extremities Exam: Normal Inspection - Back Back Exam: Normal Inspection - Neurological Neurological Exam: Alert, Oriented x 3, CN II-XII Intact, No Facial Droop, Speech Intact / Clear, Moves All Extremities Equally - Psychiatric Psychiatric Exam: Normal Affect Assessment and Plan - Patient Problems (1) Epistaxis Current Visit: No Status: Acute Comment: This is resolved. Code(s): R04.0 - Epistaxis (2) Ovarian cancer Current Visit: Yes Status: Acute Comment: Need follow-up with her oncologist. Code(s): C56.9 - Malignant neoplasm of unspecified ovary (3) Anemia Current Visit: Yes Status: Acute Comment: Status post 2 units of blood and likely transfusion. I think will watch her see how she feels later on in today and may be send home after that. Code(s): D64.9 - Anemia, unspecified
[2018-01-31] MEDS: traMADol 50 MG TABLET PO PRN (14:01)
[2018-01-31] MEDS: Sodium Chloride Tab 1 TAB TAB PO SCH ×2 (16:16→20:14)
[2018-01-31] MEDS ORDERED: HEPARIN 500 UNIT/5 ML SYRINGE FOR CENTRAL LINE IVP ONE (18:36)
[2018-01-31] MEDS: HEPARIN 500 UNIT/5 ML SYRINGE FOR CENTRAL LINE IVP PRN (18:43)
[2018-02-01] MEDS: HEPARIN 500 UNIT/5 ML SYRINGE FOR CENTRAL LINE IVP PRN (05:01)
[2018-02-01 05:26] LABS: BASOPHILS # (AUTO) 0.01 10*3/UL; BASOPHILS % (AUTO) 0.2 % (0-1); EOSINOPHILS # (AUTO) 0.04 10*3/UL; EOSINOPHILS % (AUTO) 0.8 % (0-8); Hematocrit [HCT] 26.3 % (37.0-47.0); Hemoglobin [HGB] 8.3 g/dL (12.0-16.0); LYMPHOCYTES # (AUTO) 0.56 10*3/uL; MEAN CORPUSCULAR HEMOGLOBIN 30.4 PG (27-31); MEAN CORPUSCULAR HGB CONC 31.6 g/dL (33-37); MEAN CORPUSCULAR VOLUME 96.3 FL (81-99); MEAN PLATELET VOLUME 9.4 FL (7.4-12.2); NEUTROPHILS # (AUTO) 3.39 10*3/UL; NEUTROPHILS % (AUTO) 67.6 % (50-80); RED BLOOD COUNT 2.73 10^6/uL (4.20-5.40)
[2018-02-01 05:40] LABS: BLOOD UREA NITROGEN 16 mg/dL (7-22); BUN/CREATININE RATIO 26.66 (6-20)
[2018-02-01 05:46] LABS: PLATELET MORPHOLOGY COMMENT NORMAL MORPHOLOGY (NORM); RBC MORPHOLOGY COMMENT SEE COMMENTS (NORM); WBC MORPHOLOGY COMMENT NORMAL MORPHOLOGY (NORM)
[2018-02-01] MEDS: Sodium Chloride Tab 1 TAB TAB PO SCH ×3 (08:38→15:59)
[2018-02-01] MEDS ORDERED: Ondansetron ODT Tab 8 MG TAB PO PRN (08:42)
--- NOTE | 2018-02-01 08:43 | DCSUMMARY ---
Hospitalization Summary Admit Date: 01/30/2018 Discharge Date: 01/31/18 Hospital Course: Discharge diagnoses 1. Anemia likely secondary to chemotherapy and epistaxis 2. Thrombocytopenia improved posttransfusion likely secondary to chemotherapy 3. Metastatic ovarian cancer 4. Hyponatremia may be secondary to chemotherapy or underlying cancer 5. History of hysterectomy with bilateral oophorectomy Hospital course This is a 62 years old female with medical history significant for history of metastatic ovarian cancer undergoing chemotherapy and followed up by Dr. Cheney in oncology in [place]. Patient had some blood work done and showed anemia and thrombocytopenia and was told to go to the ER in [place]. Her hemoglobin was 6 and her platelets were 28,000. She did report epistaxis. Patient was admitted to the hospital by Dr. Wright please see his note. Patient was given 2 units of for blood and a unit of platelet. I saw her the next day she said the bleeding stopped but she still felt that had low energy and she didn't feel that was she ready to go home so we kept her another night. Today her hemoglobin is 8.3 platelet 90,000. The bleeding has stopped there is no lightheadedness or dizziness she still have low energy but this may be secondary to chemotherapy and the underlying cancer. I did speak with the oncologist intelligence consultant Dr. Connolly and she agreed that no need for more transfusion. She need follow-up with them as an outpatient. I did ask her about the anticoagulant as she is on eliquis and she said to continue with it. Her exam is unchanged still have mass in her abdomen that we feel on exam. She will be discharged home and follow-up with them as an outpatient. Laboratory Results 02/01/18 02/01/18 Range/Units 05:05 05:05 WBC 5.01 (4.8-10.8) 10^3/uL RBC 2.73 L (4.20-5.40) 10^6/uL Hgb 8.3 L (12.0-16.0) g/dL Hct 26.3 L (37.0-47.0) % MCV 96.3 (81-99) FL MCH 30.4 (27-31) PG MCHC 31.6 L (33-37) g/dL RDW Std Deviation 50.3 H (39-50) fL RDW Coeff of Daniel 15.3 H (11.5-14.5) % Plt Count 90 L (140-350) 10*3/uL MPV 9.4 (7.4-12.2) FL Immature Gran % (Auto) 0.2 (0-5) % Neut % (Auto) 67.6 (50-80) % Lymph % (Auto) 11.2 (10-50) % Wy[place] % (Auto) 20.0 H (5-15) % Eos % (Auto) 0.8 (0-8) % Baso % (Auto) 0.2 (0-1) % Immature Gran # (Auto) 0.01 10*3/UL Neut # (Auto) 3.39 10*3/UL Lymph # (Auto) 0.56 10*3/uL Wy[place] # (Auto) 1.00 H (0.3-0.8) 10*3/UL Eos # (Auto) 0.04 10*3/UL Baso # (Auto) 0.01 10*3/UL WBC Morphology Comment Normal morphology (NORM) Plt Morphology Comment Normal morphology (NORM) RBC Morph Comment See comments (NORM) Sodium 128 L (135-145) meq/L Potassium 3.7 L (3.8-5.2) meq/L Chloride 93 L (98-112) meq/L Carbon Dioxide 28 (23-33) meq/L Anion Gap 7 (5-20) BUN 16 (7-22) mg/dL Creatinine 0.6 (0.50-1.20) mg/dL Estimated GFR > 60 (>60 ml/min/1.73m(2)) BUN/Creatinine Ratio 26.66 H (6-20) Glucose 73 L (78-110) mg/dL Calculated Osmolality 265.0 L (267-292) mOsm/kg Calcium 8.1 L (8.7-10.7) mg/dL Discharge instructions Diet regular Activity as tolerated Medications Current Medication(s) 3 Medication Instructions Recorded Confirmed Type Multivitamin [Daily Vitamin] 1 tab PO DAILY tab 08/21/14 01/30/18 History Apixaban [Eliquis] 2.5 mg PO BID 01/30/18 01/30/18 History Furosemide 20 mg PO DAILY 01/30/18 01/30/18 History Ondansetron [Ondansetron Odt] 1 tab PO Q8H PRN 01/30/18 01/30/18 History Oxymetazoline Nasal Spr 0.05% 1 spray HALINA DAILY PRN 01/30/18 01/30/18 History [Afrin Nasal Shaniko 0.05%] Potassium Chloride 20 meq PO BID 01/30/18 01/30/18 History Sodium Chloride Tab [Thermotabs] 1 tab PO TID 01/30/18 01/30/18 History Tramadol HCl 50 mg PO Q8H PRN 01/30/18 01/30/18 History Follow-up with oncology next week Condition at discharge was stable for discharge Exam - Vitals Vital Signs: Vital Signs Temperature 98.7 F Temperature Source Temporal Artery Scan Pulse Rate [Pulse Oximeter] 100 Pulse Rate [Pulse Oximeter 98 Bilateral Radial] Pulse Rate [Bilateral Radial] 100 Pulse Rate 89 Respiratory Rate 20 Blood Pressure [Left Arm] 164/79 Blood Pressure 121/78 Pulse Ox 96 Oxygen Flow Rate 1 Oxygen Delivery Method Nasal Cannula Height 5 ft 3 in Weight 114 lb - General General Appearance: No Acute Distress, Cooperative, Thin - Head Head Exam: Normal Inspection - Eye Eye Exam: POSITIVE: Normal Appearance - ENT ENT Exam: POSITIVE: Normal Exam - Neck Neck Exam: Normal Inspection - Respiratory Respiratory Exam: POSITIVE: Clear to Auscultation - Bilaterally - Cardiovascular Cardiovascular Exam: POSITIVE: RRR - GI/Abdominal GI/Abdominal Exam: POSITIVE: Normal Bowel Sounds, Soft Additional GI/Abdominal Exam Details: A mass felt in the midepigastric area. Slightly tender. - Rectal Rectal Exam: POSITIVE: Deferred - External Exam: POSITIVE: Deferred - Extremities Extremities Exam: POSITIVE: Normal Inspection - Back Back Exam: POSITIVE: Normal Inspection - Neurological Neurological Exam: POSITIVE: Alert, Oriented x 3, CN II-XII Intact, No Facial Droop, Speech Intact / Clear, Moves All Extremities Equally - Psychiatric Psychiatric Exam: POSITIVE: Normal Affect - Integumentary Integumentary Exam: POSITIVE: Normal Color Patient Problems - Patient Problem List (1) Epistaxis Current Visit: No Status: Acute Code(s): R04.0 - Epistaxis Category: Medical (2) Ovarian cancer Current Visit: Yes Status: Acute Code(s): C56.9 - Malignant neoplasm of unspecified ovary Category: Medical (3) Anemia Current Visit: Yes Status: Acute Code(s): D64.9 - Anemia, unspecified Category: Medical
[2018-02-01] MEDS ORDERED: FUROSEMIDE 20 MG TABLET PO SCH (09:00)
[2018-02-01] MEDS ORDERED: Potassium Chloride 20mEq Packet PO SCH (09:00)
[2018-02-01] MEDS: traMADol 50 MG TABLET PO PRN (09:09)
[2018-02-01 17:02] VITALS: TEMP 101.3
[2018-02-01 21:06] VITALS: BP 142/79; O2SAT 96
== END 2018-02-01 20:57 | disposition home or self-care (01) ==
LOC: MED/SURG 12:51 → ER 12:51 → MED/SURG 15:10
PROVIDERS: ADMIT Internal Medicine; ATTEND Internal Medicine